=== PATIENT | male | born 1970 | race Caucasian/White ===

== ENCOUNTER 2024-05-30 08:18 | Outpatient (OUT) | payer MEDICARE, SELFPAY ==
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
== END 2024-05-30 08:19 | disposition home or self-care (01) ==
LOC: EC 08:21
PROVIDERS: Visit Provider Orthopaedic Surgery
DX: M25.511 Pain in right shoulder (principal)
CPT/HCPCS: 73030